=== PATIENT | male | born 1980 | race Caucasian/White ===

== ENCOUNTER 2020-10-31 07:40 | Emergency (ER) | payer OTHER ==
[~2020-10-31] VITALS: Ht 177.8 cm; Wt 74.8 kg
[2020-10-31 07:45] VITALS: BP 144/79
[2020-10-31] MEDS ORDERED: DILANTIN100 MG PO (07:51)
[2020-10-31] MEDS ORDERED: NAPROSYN500 M1 PO (08:01)
[2020-10-31] MEDS ORDERED: NORCO 5-325 TA1 EAC2 PO (08:01)
[2020-10-31] MEDS ORDERED: FLEXERIL PO (08:01)
== END 2020-10-31 08:05 | disposition home or self-care (01) ==
LOC: M.ERS 07:40
DX: M54.6 Pain in thoracic spine (principal); F17.210 Nicotine dependence, cigarettes, uncomplicated; Z88.0 Allergy status to penicillin